=== PATIENT | male | born 1950 | race Caucasian/White ===

== ENCOUNTER 2019-02-19 21:51 | Inpatient (IN) | payer MEDICARE, MEDICAID ==
[~2019-02-19] VITALS: Ht 152.4 cm; Wt 70.0 kg
[2019-02-19] MEDS ORDERED: ALLOPURINOL100 MG PO (23:09)
[2019-02-19] MEDS ORDERED: ASPIR LOW81 MG PO (23:10)
[2019-02-19] MEDS ORDERED: LIPITOR20 MG PO (23:11)
[2019-02-19] MEDS ORDERED: EXELON1 EACH T (23:11)
[2019-02-19] MEDS ORDERED: ISOSORBIDE30 MG PO (23:12)
[2019-02-19] MEDS ORDERED: LEVOTHYROXINE75 MCG PO (23:13)
[2019-02-19] MEDS ORDERED: CENTRUM SILVER1 EACH PO (23:14)
[2019-02-19] MEDS ORDERED: NAMENDA-5 PO (23:15)
[2019-02-19] MEDS ORDERED: SEROQUEL400 M1 PO (23:16)
[2019-02-19] MEDS ORDERED: COREG12.5 M1 PO (23:18)
[2019-02-19] MEDS ORDERED: FERROUS SULFAT325 MG PO (23:21)
[2019-02-19] MEDS ORDERED: CLONAZEPAM1 MG PO (23:27)
[2019-02-19] MEDS ORDERED: ROPINIROLE HYDRO2 M2 PO (23:28)
[2019-02-19] MEDS ORDERED: SINEMET 25-2501 EACH PO (23:29)
[2019-02-19] MEDS ORDERED: ALBUTEROL2.5 MG/0.5 INH (23:31)
[2019-02-19] MEDS ORDERED: VENTOLIN 02.5 MG/3 M INH (23:32)
[2019-02-20 04:00] VITALS: BP 158/80
[2019-02-20 07:43] VITALS: BP 117/68
[2019-02-20 07:43] LABS: ALBUMIN 4.2 gm/dl (3.1-4.5); BUN 22 mg/dl (7-24); CHLORIDE 99 mmol/L (98-107); CHOLESTEROL 141 mg/dL (<200); CREATININE 1.07 mg/dL (0.70-1.30); HDL CHOLESTEROL 39 mg/dl (40-60); SGOT/AST 11 IU/L (3-35); SGPT/ALT 15 U/L (12-78); SODIUM 135 mmol/L (136-145); TOTAL PROTEIN 7.6 gm/dL (6.4-8.2)
[2019-02-20 07:44] LABS: ALKALINE PHOSPHATASE 106 U/L (45-117); LDL CHOLESTEROL 61 mg/dL (9-159); TRIGLYCERIDES 207 mg/dl (<150); VLDL CHOLESTEROL 41 mg/dL (6-40)
[2019-02-20 08:18] LABS: BASO # 0.1 10*3/uL (0.0-0.1); BASO % 0.5 % (0.0-1.0); EOS # 0.3 10*3/uL (0.0-0.4); EOS % 2.5 % (1.0-4.0); HEMATOCRIT 43.7 % (42.0-52.0); HEMOGLOBIN 14.7 g/dl (14.0-18.0); LYMPH % 15.6 % (27.0-41.0); MEAN CELL VOLUME 90.7 fl (80.0-94.0); MEAN CORPUSCULAR HGB 30.5 pg (27.0-31.0); MEAN CORPUSCULAR HGB CONC 33.6 g/dl (33.0-37.0); MEAN PLATELET VOLUME 11.8 fl (9.6-12.3); MONO # 1.4 10*3/uL (0.1-1.0); MONO % 10.9 % (3.0-9.0); NEUT # 8.8 10*3/uL (2.3-7.9); NEUT % 69.6 % (47.0-73.0); PLATELET COUNT AUTOMATED 254 10*3/uL (130-400); RED BLOOD COUNT 4.82 10*6/uL (4.50-5.90); RED CELL DISTRI WIDTH 12.6 % (0-14.5); WHITE BLOOD COUNT 12.6 10*3/uL (4.8-10.8)
[2019-02-20 08:46] LABS: VITAMIN D, 25-HYDROXY 22.8 ng/mL (30-100)
[2019-02-20 09:47] VITALS: BP 130/70
[2019-02-20 20:00] VITALS: BP 126/86
[2019-02-21 07:54] VITALS: BP 124/82
[2019-02-21 19:14] VITALS: BP 126/80
[2019-02-22 07:57] VITALS: BP 117/78
[2019-02-22 20:00] VITALS: BP 133/76
[2019-02-23 08:18] VITALS: BP 122/76
[2019-02-23 20:00] VITALS: BP 111/78
[2019-02-24 07:41] VITALS: BP 142/70
[2019-02-24 20:00] VITALS: BP 101/83
[2019-02-25 08:00] VITALS: BP 128/65
[2019-02-25 20:00] VITALS: BP 142/58
[2019-02-26 07:48] VITALS: BP 133/81; BP 145/58
[2019-02-26 20:00] VITALS: BP 125/60
[2019-02-27 08:00] VITALS: BP 136/66
[2019-02-27 20:00] VITALS: BP 140/74
[2019-02-28 07:45] VITALS: BP 132/71
[2019-02-28 19:57] VITALS: BP 125/80
[2019-03-01 08:00] VITALS: BP 119/59
[2019-03-01 20:00] VITALS: BP 126/62
[2019-03-02 08:00] VITALS: BP 106/61
[2019-03-02 19:29] VITALS: BP 123/74
[2019-03-03 08:00] VITALS: BP 111/88
[2019-03-03 19:42] VITALS: BP 101/83
[2019-03-04 08:00] VITALS: BP 130/74
[2019-03-04] MEDS ORDERED: TRIHEXYPHENIDYL2 M3 PO (08:30)
[2019-03-04] MEDS ORDERED: FANAPT8 MG PO (08:30)
[2019-03-04] MEDS ORDERED: CITALOPRAM20 MG PO (08:30)
[2019-03-04] MEDS ORDERED: VITAMIN D5000 UNIT PO (08:30)
[2019-03-04] MEDS ORDERED: HOMEMED PO (08:30)
[2019-03-04] MEDS ORDERED: EXELON13.3 MG/21 T (08:30)
[2019-03-04] MEDS ORDERED: DIVALPROEX SOD500 M1 PO (08:30)
[2019-03-04] MEDS ORDERED: THERA TABLET400 MCG PO (08:30)
[2019-03-04] MEDS ORDERED: MEMANTINE HCL10 MG PO (08:30)
[2019-03-04] MEDS ORDERED: ROZEREM8 MG PO (08:30)
== END 2019-03-04 10:00 | disposition other institution (70) | DRG 885 ==
LOC: 3N 21:51
PROVIDERS: Registered Nurse; ADMIT Psychiatry & Neurology Psychiatry
DX: F23 Brief psychotic disorder (principal); F02.81 Dementia in other diseases classified elsewhere, unspecified severity, with behavioral disturbance; G20 Parkinson's disease; F63.9 Impulse disorder, unspecified; I10 Essential (primary) hypertension; E11.65 Type 2 diabetes mellitus with hyperglycemia; F41.9 Anxiety disorder, unspecified; E03.9 Hypothyroidism, unspecified; Z79.82 Long term (current) use of aspirin; Z79.899 Other long term (current) drug therapy

== ENCOUNTER 2019-03-30 15:10 | Inpatient (IN) | payer MEDICARE ==
[~2019-03-30] VITALS: Ht 152.4 cm; Wt 57.8 kg
[~2019-03-30 15:10] MED LIST: ALBUTEROL2.5 MG/0.5 INH; ALLOPURINOL100 MG PO; ASPIR LOW81 MG PO; CENTRUM SILVER1 EACH PO; CITALOPRAM20 MG PO; CLONAZEPAM1 MG PO; COREG12.5 M1 PO; DIVALPROEX SOD500 M1 PO; EXELON1 EACH T; EXELON13.3 MG/21 T; FANAPT8 MG PO; FERROUS SULFAT325 MG PO; HOMEMED PO; ISOSORBIDE30 MG PO; LEVOTHYROXINE75 MCG PO; LIPITOR20 MG PO; MEMANTINE HCL10 MG PO; NAMENDA-5 PO; ROPINIROLE HYDRO2 M2 PO; ROZEREM8 MG PO; SEROQUEL400 M1 PO; SINEMET 25-2501 EACH PO; THERA TABLET400 MCG PO; TRIHEXYPHENIDYL2 M3 PO; VENTOLIN 02.5 MG/3 M INH; VITAMIN D5000 UNIT PO
[2019-03-30] MEDS ORDERED: ARTANE5 M1 PO (15:37)
[2019-03-30] MEDS ORDERED: ATIVAN1 MG PO (15:38)
[2019-03-30] MEDS ORDERED: VISTARIL50 MG PO (15:39)
[2019-03-30] MEDS ORDERED: GENTAMICIN3.5 GM OPH (15:41)
[2019-03-30] MEDS ORDERED: HALDOL5 MG/1 ML IJ (15:42)
[2019-03-30] MEDS ORDERED: HUMALOG100 UNIT/1 SQ (15:45)
[2019-03-30] MEDS ORDERED: SEROQUEL100 MG PO (15:46)
[2019-03-30] MEDS ORDERED: LANTUS SOL100 UNIT/1 SC (15:46)
[2019-03-30] MEDS ORDERED: SEROQUEL300 MG PO (15:47)
[2019-03-30] MEDS ORDERED: OMNICEF300 MG PO (16:31)
[2019-03-30 23:45] VITALS: BP 136/75
[2019-03-31 06:42] LABS: BASO % 0.4 % (0.0-1.0); EOS # 0.4 10*3/uL (0.0-0.4); EOS % 3.9 % (1.0-4.0); HEMATOCRIT 44.3 % (42.0-52.0); HEMOGLOBIN 14.8 g/dl (14.0-18.0); LYMPH # 1.7 10*3/uL (1.3-4.4); LYMPH % 18.7 % (27.0-41.0); MEAN CELL VOLUME 90.6 fl (80.0-94.0); MEAN CORPUSCULAR HGB 30.3 pg (27.0-31.0); MEAN CORPUSCULAR HGB CONC 33.4 g/dl (33.0-37.0); MEAN PLATELET VOLUME 10.9 fl (9.6-12.3); MONO # 0.6 10*3/uL (0.1-1.0); MONO % 6.9 % (3.0-9.0); NEUT # 6.5 10*3/uL (2.3-7.9); NEUT % 69.8 % (47.0-73.0); PLATELET COUNT AUTOMATED 283 10*3/uL (130-400); RED BLOOD COUNT 4.89 10*6/uL (4.50-5.90); RED CELL DISTRI WIDTH 12.3 % (0-14.5); WHITE BLOOD COUNT 9.3 10*3/uL (4.8-10.8)
[2019-03-31 07:21] LABS: ALBUMIN 3.9 gm/dl (3.1-4.5); BUN 28 mg/dl (7-24); CHLORIDE 106 mmol/L (98-107); CHOLESTEROL 99 mg/dL (<200); POTASSIUM 4.3 mmol/L (3.5-5.1); SGPT/ALT 14 U/L (12-78); SODIUM 139 mmol/L (136-145)
[2019-03-31 07:32] LABS: ALKALINE PHOSPHATASE 138 U/L (45-117); CREATININE 1.13 mg/dL (0.70-1.30); HDL CHOLESTEROL 40 mg/dl (40-60); LDL CHOLESTEROL 41 mg/dL (9-159); SGOT/AST 16 IU/L (3-35); THYROID STIM HORMONE (HS) 0.928 uIU/ml (0.358-4.75); TRIGLYCERIDES 90 mg/dl (<150); VLDL CHOLESTEROL 18 mg/dL (6-40)
[2019-03-31 07:51] LABS: VITAMIN D, 25-HYDROXY 53.4 ng/mL (30-100)
[2019-03-31 08:23] VITALS: BP 110/78
[2019-03-31 20:00] VITALS: BP 136/62
[2019-04-01 07:46] VITALS: BP 142/89
[2019-04-01 20:15] VITALS: BP 142/72
[2019-04-02 07:48] LABS: BILIRUBIN NEGATIVE (NEGATIVE); BLOOD NEGATIVE (NEGATIVE); CLARITY SL CLOUDY (CLEAR); COLOR YELLOW (YELLOW); GLUCOSE NEGATIVE (NEGATIVE); KETONE NEGATIVE (NEGATIVE); LEUKO ESTERASE 2+ (NEGATIVE); NITRITE NEGATIVE (NEGATIVE); PH 6.5 (5.0-9.0); UROBILINOGEN 0.2 E.U./dl (0.2-1.0)
[2019-04-02 07:49] LABS: WBC TNTC wbc/hpf (0-5); YEAST 2+
[2019-04-02 07:52] VITALS: BP 125/68
[2019-04-02 20:00] VITALS: BP 113/80
[2019-04-03 07:35] VITALS: BP 140/62
[2019-04-03 19:42] VITALS: BP 136/69
[2019-04-04 07:46] VITALS: BP 124/60
[2019-04-04 19:54] VITALS: BP 150/62
[2019-04-05 08:00] VITALS: BP 144/64
[2019-04-05 19:39] VITALS: BP 144/60
[2019-04-06 07:58] VITALS: BP 133/60
[2019-04-06 20:00] VITALS: BP 132/82
[2019-04-07 06:22] LABS: BASO % 0.4 % (0.0-1.0); EOS # 0.3 10*3/uL (0.0-0.4); EOS % 2.7 % (1.0-4.0); HEMATOCRIT 42.1 % (42.0-52.0); HEMOGLOBIN 13.9 g/dl (14.0-18.0); LYMPH # 1.9 10*3/uL (1.3-4.4); LYMPH % 18.1 % (27.0-41.0); MEAN CELL VOLUME 89.2 fl (80.0-94.0); MEAN CORPUSCULAR HGB 29.4 pg (27.0-31.0); MEAN PLATELET VOLUME 10.9 fl (9.6-12.3); MONO # 0.7 10*3/uL (0.1-1.0); MONO % 6.7 % (3.0-9.0); NEUT # 7.5 10*3/uL (2.3-7.9); NEUT % 71.8 % (47.0-73.0); PLATELET COUNT AUTOMATED 266 10*3/uL (130-400); RED BLOOD COUNT 4.72 10*6/uL (4.50-5.90); RED CELL DISTRI WIDTH 12.1 % (0-14.5); WHITE BLOOD COUNT 10.5 10*3/uL (4.8-10.8)
[2019-04-07 08:00] VITALS: BP 123/77
[2019-04-07 19:47] VITALS: BP 127/86
[2019-04-08 07:51] VITALS: BP 120/84
[2019-04-08 20:00] VITALS: BP 142/59
[2019-04-09 07:32] VITALS: BP 138/72
[2019-04-09 20:00] VITALS: BP 138/64
[2019-04-10 08:00] VITALS: BP 112/77
[2019-04-10 20:00] VITALS: BP 146/66
[2019-04-11 07:46] VITALS: BP 94/67
[2019-04-11 09:30] VITALS: BP 122/66
[2019-04-11 20:02] VITALS: BP 110/73
[2019-04-12 07:53] VITALS: BP 120/52
[2019-04-12] MEDS ORDERED: TRIHEXYPHENIDYL2 M3 PO (08:52)
[2019-04-12] MEDS ORDERED: CLOZAPINE100 MG PO (08:52)
[2019-04-12] MEDS ORDERED: CLOZAPINE25 MG PO (08:52)
[2019-04-12] MEDS ORDERED: CITALOPRAM20 MG PO (08:52)
[2019-04-12] MEDS ORDERED: EYE DROPS 15 ML15 ML OPH (12:28)
== END 2019-04-12 14:45 | disposition other institution (70) | DRG 885 ==
LOC: 3N 15:10
PROVIDERS: ADMIT Psychiatry & Neurology Psychiatry
DX: F25.0 Schizoaffective disorder, bipolar type (principal); F03.91 Unspecified dementia, unspecified severity, with behavioral disturbance; F33.9 Major depressive disorder, recurrent, unspecified; E11.9 Type 2 diabetes mellitus without complications; R62.50 Unspecified lack of expected normal physiological development in childhood; G24.01 Drug induced subacute dyskinesia; I10 Essential (primary) hypertension; E78.5 Hyperlipidemia, unspecified; G20 Parkinson's disease; F41.9 Anxiety disorder, unspecified; E03.9 Hypothyroidism, unspecified; M10.9 Gout, unspecified; G47.00 Insomnia, unspecified; Z83.3 Family history of diabetes mellitus; Z79.4 Long term (current) use of insulin; Z87.891 Personal history of nicotine dependence; Z82.49 Family history of ischemic heart disease and other diseases of the circulatory system; Z80.9 Family history of malignant neoplasm, unspecified; Z84.1 Family history of disorders of kidney and ureter; Z79.82 Long term (current) use of aspirin; Z79.899 Other long term (current) drug therapy

== ENCOUNTER 2019-08-05 23:01 | Inpatient (IN) | payer MEDICARE, MEDICAID ==
[~2019-08-05] VITALS: Ht 157.4 cm; Wt 63.5 kg
[~2019-08-05 23:01] MED LIST changes: +ARTANE5 M1 PO; +ATIVAN1 MG PO; +CLOZAPINE100 MG PO; +CLOZAPINE25 MG PO; +EYE DROPS 15 ML15 ML OPH; +GENTAMICIN3.5 GM OPH; +HALDOL5 MG/1 ML IJ; +HUMALOG100 UNIT/1 SQ; +LANTUS SOL100 UNIT/1 SC; +OMNICEF300 MG PO; +SEROQUEL100 MG PO; +SEROQUEL300 MG PO; +VISTARIL50 MG PO
[2019-08-06] MEDS ORDERED: CLOZAPINE50 MG PO (05:08)
[2019-08-06] MEDS ORDERED: TETRABENAZINE12.5 MG PO (05:09)
[2019-08-06] MEDS ORDERED: GENTACIDIN5 ML OU (05:14)
[2019-08-06] MEDS ORDERED: NUPLAZID34 MG PO (05:15)
[2019-08-06] MEDS ORDERED: MIRTAZAPINE15 M2 PO (05:17)
[2019-08-06] MEDS ORDERED: METFORMIN HYDR500 MG PO (05:20)
[2019-08-06] MEDS ORDERED: TRAZODONE50 MG PO (05:23)
[2019-08-06] MEDS ORDERED: PHARMASSURE FO0.4 MG PO (05:25)
[2019-08-06] MEDS ORDERED: VISTARIL50 MG PO ×2 (05:27→05:29)
[2019-08-06] MEDS ORDERED: MELATONIN3 MG PO (05:29)
[2019-08-06] MEDS ORDERED: CELEXA20 MG PO (05:38)
[2019-08-06] MEDS ORDERED: CLOZAPINE200 MG PO (05:49)
--- NOTE | 2019-08-06 18:17 | NUR ---
LARS MCKENNA a 69 year old M admitted via wheel chair from the [facility] ER as a Voluntary admission by Guardian Chelsea Chen admission. Arrived on unit at 1816 . ALLERGIES: NKA. Vital signs are: 97.3-89-17 156/75. The Verbal consent by Guardian Chelsea Chen the following forms with stated understanding: Authorization For The Release of Medical Information, Clothing List, Consent to Voluntary Admission and Hospitalization, Consent and Release Forms/Receipt of Rights, Acknowledgement of Advance Directive Information, Behavioral Health Consent Form, and Informed Consent of Medications. Admitted under the services of Dr. [facility]. A search was conducted and hazardous articles were removed. Client was oriented to the unit. JS ROMERO Patient arrived on the unit accompanied by nurse, MHW, and security via wheelchair. Pt was mute and not responding to questions, with a labile mood . Noted eye darting at times, involuntary generalized body movements. Pt did not come with any belongings, only clothes that he had. Pt denied food, drank two cups of water. Refusing skin assessment and to answer any admission questions at this time.
[2019-08-06 18:35] VITALS: BP 156/75
--- NOTE | 2019-08-06 18:53 | NUR ---
JOSUE DODGE, AWARE OF PT'S ADMISSION.
[2019-08-06 20:00] VITALS: BP 156/75
--- NOTE | 2019-08-06 20:39 | NUR ---
DR MARTIN ON UNIT TO SEE PATIENT. PATIENT LET THIS NURSE ASSESS SKIN. SCRATCH TO RIGHT ABDOMEN. WILL INFORM THAT PATIENT WILL NEED SEEN BY PODIATRY FOR TOENAIL CARE
--- NOTE | 2019-08-07 06:36 | NUR ---
PATIENT SLEPT APPROX 2 HOURS THROUGHOUT THE NIGHT INTERRUPTED. NO DISTRESS NOTED.
[2019-08-07 08:00] VITALS: BP 150/72
--- NOTE | 2019-08-07 10:30 | NUR ---
and on unit to see pt at this time, update given.
[2019-08-07 11:24] LABS: BASO % 0.3 % (0.0-1.0); EOS # 0.1 10*3/uL (0.0-0.4); LYMPH # 1.7 10*3/uL (1.3-4.4); MEAN CELL VOLUME 86.9 fl (80.0-94.0); MEAN CORPUSCULAR HGB CONC 33.4 g/dl (33.0-37.0); MEAN PLATELET VOLUME 10.6 fl (9.6-12.3); MONO # 0.8 10*3/uL (0.1-1.0); MONO % 6.8 % (3.0-9.0); NEUT # 8.8 10*3/uL (2.3-7.9); NEUT % 76.6 % (47.0-73.0); PLATELET COUNT AUTOMATED 350 10*3/uL (130-400); RED BLOOD COUNT 4.72 10*6/uL (4.50-5.90); RED CELL DISTRI WIDTH 13.1 % (0-14.5); WHITE BLOOD COUNT 11.5 10*3/uL (4.8-10.8)
[2019-08-07 11:51] LABS: ALBUMIN 4.2 gm/dl (3.1-4.5); ALKALINE PHOSPHATASE 157 U/L (45-117); BUN 50 mg/dl (7-24); CHLORIDE 105 mmol/L (98-107); CHOLESTEROL 105 mg/dL (<200); HDL CHOLESTEROL 42 mg/dl (40-60); LDL CHOLESTEROL 33 mg/dL (9-159); POTASSIUM 4.2 mmol/L (3.5-5.1); SGOT/AST 34 IU/L (3-35); SGPT/ALT 43 U/L (12-78); SODIUM 137 mmol/L (136-145); TOTAL PROTEIN 7.4 gm/dL (6.4-8.2); TRIGLYCERIDES 149 mg/dl (<150); VLDL CHOLESTEROL 30 mg/dL (6-40)
--- NOTE | 2019-08-07 13:09 | NUR ---
PSYCHOSOCIAL HX COMPLETED THIS DATE
--- NOTE | 2019-08-07 13:54 | NUR ---
DR MONSIVAIS CONTACTED AT [phone]. ASKED DR MONSIVAIS TO LOOK AT PTS' LABS. STATED OK.
[2019-08-07 13:55] LABS: VITAMIN D, 25-HYDROXY 44.5 ng/mL (30-100)
--- NOTE | 2019-08-07 17:44 | NUR ---
Problem: AGITATION, PT YELLING OUT ND HITTING TABLE Interventions: A&O TO PERSON, AGITATED, IRRITABLE, LABILE, and behavior assessed VIA Q15 MINUTE SAFETY CHECKS. Continue medication regimen, encourage socializing with peers and staff, encouraged attending and participating in groups. 1:1 PROVIDED FOR THERAPEUTIC COMMUNICATION Response: PT REMAINS A&O TO PERSON ONLY. MEDICATION COMPLIANT WITH PROMPTING. Plan: Continue medication regimen, maintain patient safety on the unit, and continue to provide reorientation as needed. Continue to assess patient for orientation, CONTINUE TO MONITOR BEHAVIOR WITH Q15 MINUTE SAFETY CHECKS. Encourage patient to attend and participate in groups and encourage patient to socialize with peers and staff.
[2019-08-07 19:56] VITALS: BP 128/58
--- NOTE | 2019-08-08 01:21 | NUR ---
PT ALERT. ORIENTED TO PERSON ONLY. ABLE TO FOLLOW VERAL COMMAND. MEDICATION COMPLIANT WITHOUT DIFFICULTY. PT CONSUMED HS SNACK WELL 240CC OF GLUCERNA. BSG 76, PT PROVIDED WITH ADDITIONAL PUREED SNACK. PT HAD ONE EPISODE OF YELLING OUT AND SMACKING A TABLE, EASILY REDIRECTED. PT ASSISTED TO BED X 2 ASSIST, SLIGHTLY RESISTIVE WITH HOC, PROVIDED WITH REASSURANCE OF SAFETY, EFFECTIVE. PT NOW RESTING QUIETLY IN BED. WILL CONTINUE TO MONITOR Q15 MIN PER POLICY FOR SAFETY. BED LOW AND LOCKED. ALARM INTACT AND AUDIBLE.
--- NOTE | 2019-08-08 05:44 | NUR ---
PT SLEPT 7 BROKEN HOURS T/O NIGHT. NOTED TO BE RESTLESS, FREQUENTLY MOVING.
[2019-08-08 08:00] VITALS: BP 144/71
--- NOTE | 2019-08-08 08:05 | NUR ---
Patient eating breakfast in dining room with peers. Respirations easy and regular. Vital signs stable. No overt distress. ANDREA DICKINSON
--- NOTE | 2019-08-08 08:30 | NUR ---
Treatment Plan meeting was held this a.m. with Dr. Johnston, KATHARINE Malik, RN, AT, DAM ATTENDANT-S and Link Trainer Maintenance Man. Plan for discharge Next Week. Pt. came to [facility] from [place]. Will reach out to facility today to discuss discharge Planning.
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
--- NOTE | 2019-08-08 10:15 | NUR ---
ATTEMPTED TO ST CATH PT PER DR CLARK. PT ST CATH'ED WITHOUT DIFFICULTY AND STERILE TECHNIQUE MAINTAINED. PT TOLERATED WELL. NO URINE OUTPUT AT THIS TIME. PT WAS INCONTINENT OF URINE.
--- NOTE | 2019-08-08 11:39 | NUR ---
ASSESSMENT PT IS UNABLE TO PARTICIPATE IN ASSESSMENT AT THIS TIME DUE TO COGNITIVE IMPAIRMENT. ASSESSMENT WAS BASED ON DOCUMENTATION, NURSING REPORT AND OBSERVATION WELL PREVIOUS EXPERIENCE WITH PT.
--- NOTE | 2019-08-08 12:18 | NUR ---
Spoke with Lynette Flores at [facility]. Pt. is to return to facility as new Admit. He was out of Medicaid Bed Hold Days and will readmit New Admit SNF. PT/OT required. Notified Nurse Zuleta in the [facility].
--- NOTE | 2019-08-08 13:25 | NUR ---
Clinical Updates faxed to [place].
--- NOTE | 2019-08-08 15:43 | NUR ---
GROUPS A AND B COMBINED PT WAS PRESENT FOR AFTERNOON GROUP THERAPY RECLINED IN A ALLISON CHAIR. PT IS UNABLE TO PARTICIPATE AT THIS TIME DUE TO COGNITIVE IMPAIRMENT. PT WAS OBSERVANT AND QUIET. PT EXHIBITED NO ADVERSE BEHAVIORS WHILE IN GROUP.
--- NOTE | 2019-08-08 16:09 | NUR ---
PT IN DINNINGROOM YELLING OUT, POISON, AND HITTING TRAY. UNABLE TO REDIRECT PT. WHEN ASKED PT WHAT WAS POISON HE YELLED YES IT IS. PRN ATIVAN PO GIVEN AT THIS TIME. WILL MONITOR EFFECTIVENESS OF MEDICATION.
--- NOTE | 2019-08-08 17:10 | NUR ---
PRN ATIVAN EFFECTIVE.
--- NOTE | 2019-08-08 17:43 | NUR ---
DAYLIGHT SKIN ASSESSMENT 08/08/19 Completed by this RN and 2nd RN NADINE: Pt agitated, refused to allow nursing to complete full head to toe skin assessment.
--- NOTE | 2019-08-08 18:41 | NUR ---
P: LABILE MOOD, PT YELLING OUT INTERMITTENTLY AND HITTING TRAY. I: PROVIDED 1:1 FOR THERAPEUTIC COMMUNICATION. REORIENT/REDIRECTED PT NEEDED. ENCOURAGED MEDICATION COMPLIANCE. ENCOURAGED PT TO INTERACT WITH STAFF AND PEERS. R: PT NOT RECEPTIVE TO REDIRECTION AND REORIENTATION. MEDICATION COMPLIANT WITH PROMPTING. PT WILL NOT INTERACT WITH STAFF OR PEERS. ALERT TO SELF. SEE [facility] FLOWSHEET FOR SPECIFIC MONITORING.
[2019-08-08 20:00] VITALS: BP 150/75
--- NOTE | 2019-08-09 01:23 | NUR ---
P-CONFUSION I-REDIRECTION WITH 1:1 THERAPEUTIC INTERVENTIONS AND COMMUNICATION. PRESENT REALITY. EDUCATE AND ENCOURAGE MEDICATION COMPLIANCE R-MEDICATION COMPLIANT AT HS. PATIENT PROVIDED NOURISHMENT AND FLUIDS AT HS. PATIENT WITH NO HALLUCINATIONS OR DELUSIONS. PATIENT WITH NO HOMICIDAL IDEATIONS AND DENIES SUICIDAL IDEATIONS AT THIS TIME. PATIENT WITH ABNORMAL INVOLUNTARY BODY MOVEMENTS. ATTEMPT X 1 TO STRAIGHT CATH PATIENT TO OBTAIN URINE SPECIMEN. STERILE TECHNIQUE USED. URINE CLOUDY YELLOW. PATIENT NOT TOLERATING PROCEDURE WELL. PATIENT WITH SMALL AMOUNT OF BLOOD WHEN CATHETER REMOVED. URINE SENT TO LAB BUT UNABLE TO RUN URINE SPEIMEN DUE TO MISSING INFORMATION ON LABEL. P-CONTINUE TO ENCOURAGE MEDICATION COMPLIANCE, CONTINUE TO PRESENT REALITY, ENCOURAGE GROUP THERAPY WHILE AWAKE
--- NOTE | 2019-08-09 05:23 | NUR ---
PATIENT SLEPT 2 HOURS OF INTERRUPTED SLEEP THROUGHTOUT SHIFT. Q 15 MINUTE CHECKS MAINTAINED. 24 HR chart check completed.
[2019-08-09 07:52] VITALS: BP 120/84
--- NOTE | 2019-08-09 08:02 | NUR ---
Patient sitting in dining room with peers, listening to music. No voiced complaints at this time. Encouraging patient to shift weight frequently in cahir. No s/s of distress noted; Resps even and unlabored on room air. Falling star program maintained with alarms intact. Q15 minute checks maintained for safety.
--- NOTE | 2019-08-09 08:30 | NUR ---
Treatment Plan meeting was held this a.m. with Dr. Johnston on the Telephone, LISW Helena, RN, AT, ROUTE INSPECTOR-S and Contact Center Analyst in attendance. Plan for discharge Next week with return to [place].
--- NOTE | 2019-08-09 09:45 | NUR ---
DR WANG ON THE UNIT TO ASSESS PT.
--- NOTE | 2019-08-09 10:55 | NUR ---
DAYLIGHT SKIN ASSESSMENT 08/09/19 Completed by this RN and 2nd RN DAVID.[email or web address]: Pt agitated, refused to allow nursing to complete full head to toe skin assessment.
--- NOTE | 2019-08-09 11:44 | NUR ---
AM GROUP PT ATTENDED MORNING GROUP THERAPY BUT IS UNABLE TO PARTICIPATE DUE TO COGNITIVE IMPAIRMENT. PT OBSERVED AND LISTENED TO MUSIC. PT HAD ONE OUTBURST WHERE HE POUNDED ON HIS TRY AND YELLED OUT, BUT OTHERWISE EXHIBITED NO ADVERSE BEHAVIORS WHILE IN GROUP
--- NOTE | 2019-08-09 12:21 | NUR ---
PHYSICAL THERAPY Physical Therapy evaluation completed on 3N with full evaluation to follow. Moderate complexity PT evaluation per chart review and evaluation, [address]. Recommend physical therapy per plan of care and SNF upon discharge. Thank you for this referral. Yulissa Kevin,PT,DPT
--- NOTE | 2019-08-09 12:29 | NUR ---
Occupational Therapy evaluation completed on 3N with full evaluation to follow. Recommend occupational therapy per plan of care and SNF upon discharge. Thank you for this referral. Kell Lloyd OTR/L
--- NOTE | 2019-08-09 14:05 | NUR ---
GROUP A PT WAS PRESENT FOR GROUP THERAPY RECLINED IN A ALLISON CHAIR WATCHING THE MOVIE. PT IS UNABLE TO PARTICIPATE DUE TO COGNITIVE IMPAIRMENT BUT IS VERY OBSERVANT. PT HAD NO OUTBURSTS OR ADVERSE BEHAVIOR WHILE IN GROUP.
--- NOTE | 2019-08-09 15:39 | NUR ---
GROUP B PT WAS PRESENT FOR GROUP THERAPY AND WAS AGITATED WHEN GROUP BEGAN. PT WAS MOVED TO AN AREA OF THE ROOM WHERE HE COULD OBSERVE AND LISTEN TO MUSIC. PT IS SELECTIVELY MUTE. PT WOULD ABRUPTLY POUND ON TRAY AND YELL OUT, WHICH WAS CAUSING HIS PEERS TO STARTLE. PT WAS ASKED TO TRY TO STOP BUT DID IT AGAIN SEVERAL TIMES.
--- NOTE | 2019-08-09 15:40 | NUR ---
Shift chart check completed.
--- NOTE | 2019-08-09 16:24 | NUR ---
Coccyx cleansed with soap and water and hydroguard applied per orders.
--- NOTE | 2019-08-09 16:56 | NUR ---
P- Confusion, Yelling out, Labile mood, Refuse head to toe assessment. I- Assess mood, orientation, SI/HI, hallucinations, delusions, or pain. Provide medications on time with education on each. Encourage medication compliance. Reorient patient when confusion is noted. 1:1 interaction, reassurance, redirection, and low stimuli environment provided. Encourage to attend/participate in group therapies. One to two assist with toleting, ADLs, care, and transfering due to unsteady gait. Educate on the importance of head to toe assessment, reapproach at a later time. R- Patient remains at baseline confusion only alert to person only. Reorientation effective for a short while. Patient refused to participate in interview questions. No s/s of interacting with internal stimuli. No s/s of delusional or paranoid thought process. No s/s of distress noted; resps even and unlabored on room air. Pt mood labile. 1:1, reassurance, redirection, and low stimuli effective for yelling out. Pt yelling out, unsure what patient is saying when he yells out randomly. Sounded like pt yelled out "Down ruddy, Down" at one time. Pt continues to have generalized involuntary movements. Unsteady gait due to involuntary movements; one to two assist provided with toileting, transfering, ADLs, care. Incontinent of urine. Refused head to toe assessment, even with reapproach continue to refuse. Adequate PO intake noted. Medication compliant with encouragement. P- Assess mood, orientation, SI/HI, hallucinations, delusions, or pain every shift. Provide medications on time with education on each. Encourage compliance. 1:1, reassurance, redirection, and low stimuli environment provided with labile mood and yelling out. Head to toe assessment every shift and reapproach if refusing. Falling star program maintained. One to two assist provided with ADLs, care, toileting, and transfering due to unsteady gait. Q15 minute checks maintained for safety.
[2019-08-09 20:00] VITALS: BP 135/72
--- NOTE | 2019-08-09 21:19 | NUR ---
P-CONFUSION, YELLING OUT, NON-SENISCAL SPEECH. I-ASSESS ORIENTATION, MOOD, AND BEHAVIOR. PRESENT REALITY AND REORIENT. PROVIDE 1:1 WITH THERAPEUTIC INTERVENTIONS. ENCOURAGE MEDICATION COMPLIANCE AND EDUCATE. R-PATIENT ALERT TO SELF, OTHERWISE APPEARS CONFUSED. ASSESSMENT DIFFICULT TO COMPLETE DUE TO PATIENTS SPEECH BEING LOUD, SLURRED/GARBLED AND PATIENT REFUSING TO PARTICIPATE IN INTERVIEW QUESTIONS. PT REDIRECTABLE WITH MULTIPLE PROMPTS DURING PERIODS OF YELLING OUT/DISRUPTIVE BEHAVIOR. UNDERLYING IRRITABILITY NOTED WITH INTERACTIONS, NO COMBATIVE BEHAVIORS OBSERVED AT THIS TIME. PT MEDICATION COMPLIANT WITHOUT DIFFICULTY WHEN CRUSHED IN APPLESAUCE, UNABLE TO EDUCATE DUE TO COGNITION. PT VOICES NO SI/HI, HALLUCINATIONS, OR PAIN. NO NOTED RESPONDING TO INTERNAL STIMULI. PT CONTINUES TO HAVE GENERALIZED INVOLUNTARY MOVEMENTS, UNSTEADY GAIT, X2 ASSIST WITH ALL CARE. PT INCONTINENT OF BOWEL AND BLADDER. NO DISTRESS NOTED. P-CONTINUE TO MONITOR MOODS AND BEHAVIORS. MAINTAIN Q 15 MIN CHECKS AND PRN FOR SAFETY.
--- NOTE | 2019-08-10 01:07 | NUR ---
24 HR chart check completed.
--- NOTE | 2019-08-10 05:59 | NUR ---
SLEPT 3 HOURS INTERRUPTED
--- NOTE | 2019-08-10 07:30 | NUR ---
OT NOTE Prior to coming to the floor spoke with nurse Ram and reported that therapy was coming to treat this pt. Pt was seen this A.M. 1:1 for 15 minute OT session with OIL DRILLING ENGINEER and nursing staff present for observation only. Upon arrival pt was sitting semi reclined in the kasie chair in the dining allen. Pt identified by name and on wristband. Pt was taken out to the hallway where he donned B socks with Nathalie for assist with proper sequencing of task. Sit to stand completed from chair level with Nathalie followed by functional mobility to his room with Nathalie DEVELOPING MACHINE OPERATOR. Pt sat EOB while donning pants with Nathalie for inital start over his feet. Sit to stand completed from bed level with Nathalie followed by functional mobility back to the kasie chair with Nathalie DEVELOPING MACHINE OPERATOR. Pt was left sitting upright in the dining allen under [facility] staff supervision with lap tray in place and body alarm activated for safety. Continue with rec D/C plan to SNF. ARUN Doherty/Lulu
--- NOTE | 2019-08-10 07:40 | NUR ---
PHYSICAL THERAPY Patient seen this am for therapy visit and was sitting semi reclined in activity room Loren chair upon therapist arrival. Patient identified by name / on ankle band and presented with mostly no verbal communication, except for yes/no type responses. Patient transfers sit to stand CGA and ambulates RADIATION THERAPY TECHNOLOGIST/CGA, 50'x 2, demonstrating impulsive gait velocity at times, requiering multiple v/c's to focus on task. Patient also demonstrated several episodes of R side gait deviation prior to returning to activity room Loren chair. Patient remained in chair with lap tray and body alarm, under [facility] staff Supervision. Will continue per POC as tolerated, total treatment time 17 minutes. Jono Tate, LEGAL EXECUTIVE ASSISTANT
[2019-08-10 07:42] VITALS: BP 145/85
--- NOTE | 2019-08-10 08:30 | NUR ---
Treatment Plan meeting was held this a.m. with KATHARINE Malik, Dr. Johnston Via telephone, RN, AT, JOSUE-S and Gearcase Assembler. Plan for discharge Next Week. Pt. will return to [place].
--- NOTE | 2019-08-10 09:38 | NUR ---
Patient sitting in the dining room in [facility], breakfast in front of him. No s/s of distress noted, resps even and unlabored on room air. Skin integrity interventions maintained. Patient shifting weight frequently in chair, encouraged to do so. Falling star program maintained with alarms intact/audible. Q15 minute checks maintained for safety.
--- NOTE | 2019-08-10 11:35 | NUR ---
AM GROUP PT IS UNABLE TO ATTEND GROUP THERAPY AT THIS TIME DUE TO COGNITIVE IMPAIRMENT AND A DISRUPTION TO THE MILIEU. PT RANDOMLY YELLS OUT AND STRIKES HIS TRAY STARTLING HIS PEERS. PT WAS IN THE IRBY WITH MHW FOR OBSERVATION
--- NOTE | 2019-08-10 12:00 | NUR ---
Shift chart check completed.
--- NOTE | 2019-08-10 12:00 | NUR ---
Shift chart check completed.
--- NOTE | 2019-08-10 14:25 | NUR ---
Clinical updates faxed to [place].
--- NOTE | 2019-08-10 15:00 | NUR ---
Patient refused head to toe skin assessment.
--- NOTE | 2019-08-10 15:44 | NUR ---
P- Yelling out, Irritable, Isolative, Selective with medications, Confusion I- Assess mood, orientation, SI/HI, hallucinations, delusions, or pain. Provide medications on time with education on each. Encourage medication compliance. Reorient when confusion is noted. 1:1 therapeutic interaction, redirection, and reassurance provided with yelling out and irritability. Low stimuli environment and activities provided for patient. Encourage to attend and participate in group therapies. Falling star program maintained with alarms intact/audible. I- Patient alert to self and approximate place. Unreceptive to reorientation. Unable to assess other areas due to patient remaining mute. Patient refusing medications at times and selective with what medications he will take. Patient will say "no, no, no". Patient will not ellaborate on why he does not want to take medications at times. Education and 1:1 interaction is ineffective. Patient will randomly start yelling out and thrashing his arms and legs around. Unable to understand what the patient is yelling due to haveing a garbled speech. No s/s of interacting with internal stimuli. Unsure if paranoid or delusional thought process is noted due to yelling out and not being able to tell what he is yelling about and refusing medications. No s/s of distress noted, resps even and unlabored on room air. Pt not participating/attending group therapies, denies wanting to do activities. Low stimuli environment seems to be more helpful for patients. P- Assess mood, orientation, SI/HI, hallucinations, delusions, or pain every shift. Provide meds on time with education on time. Encourage compliance. Reorient with confusion. Provide 1:1 interaction, reassurance, redirection, low stimuli environment, and activities when needed. Encourage to attend/paricipate in group therapies. Falling star program maintained. Skin integrity interventions maintained. Q15 minute checks maintained for safety.
--- NOTE | 2019-08-10 15:47 | NUR ---
GROUP B PT ATTENDED GROUP THERAPY AND WAS LESS AGITATED AND DID NOT YELL OUT OR STRIKE HIS TRAY. PT WAS CONTENT TO QUIETLY OBSERVE.
--- NOTE | 2019-08-10 17:08 | NUR ---
Discrepancy in Pyxis: [id number]. This nurse was attempting to get out a Geodon, counting the wrong amount twice. This nurse thought there was 14 but there was really 13 creating this discrepancy. By pulling the Geodon for this patient, there should now be 12 in the pyxis.
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
--- NOTE | 2019-08-10 18:42 | NUR ---
PRN Ativan and Geodon that was given per orders were effective. Patient is reclined in gerichair with eyes closed in a low stimuli environment. No s/s of distress noted, resps even and unlabored on room air. Easily arousable to verbal and tactile stimuli. Falling star program maintained with alarms intact and audible. Q15 minute chcks maintained for safety.
[2019-08-10 20:02] VITALS: BP 142/86
--- NOTE | 2019-08-10 22:04 | NUR ---
EASILY AWAKENED FOR MEDICATIONS. NO COMPLAINTS OFFERED. ATE 2 1/2 CONTAINERS OF APPLESAUCE. NOT INTERESTED IN TALKING. CLOSED EYES AND APPEARED TO BE GOING BACK TO SLEEP
--- NOTE | 2019-08-11 02:04 | NUR ---
RESTING QUIET IN CHAIR. MOVES SELF AROUND 24 HR chart check completed.
--- NOTE | 2019-08-11 06:35 | NUR ---
WITH ASSIST OF 2 WE GET TO BATHROOM. INCONTINENT OF LARGE AMOUNT FOUL SMELLING URINE. CLEANED UP AND PLACED IN BED. IMMEDIATLY CLOSED EYES BUT DID ALLOW BSG TO BE DONE. REFUSED PO MEDICATION AT THIS TIME. SLEPT 9 INTERUPTED HOURS
--- NOTE | 2019-08-11 07:15 | NUR ---
PHYSICAL THERAPY Patient seen this am for therapy visit and was resting Prone in bed upon therapist arrival. Patient identified by name / as patient responds with mostly yes / no type answers. Patient needed MAX v/c's to improve focus on task in completing all treatment this session as patient transfers supine to sit EOB with MIN A. Patient completed sit to stand CGA and was a little impulsive this moring, ambulating AIRPORT TOWER CONTROLLER/CGA x 2 to bathroom, 20'x 1, then additional 100'x 1, AIRPORT TOWER CONTROLLER/CGA, demonstrating increased gait velocity and POOR safety awareness. Patient returned to Loren chair with lap tray and body alarm in activity room under [facility] staff Supervision. Will continue per POC as tolerated, total treatment time 17 minutes. Jono Tate, COACH
--- NOTE | 2019-08-11 07:30 | NUR ---
OT NOTE Prior to coming to the floor spoke with Afua and reported that therapy was coming to the floor to treat this pt. Pt was seen this A.M. 1:1 for 15 minute OT session with INSPECTOR SET UP AND LAY OUT and nursing staff present for observation only. Upon arrival pt was supine in bed. Pt identified by name and and had no complaints at this time. Pt transferred supine to sit EOB with Nathalie for assist with BLE's. While seated pt donned B socks with maxA due to being unable to proccess commands and poor attention to tasks. Sit to stand completed from bed level with CGA and WAN SUPPORT SPECIALIST X 2 followed by functional mobility to the bathroom with CGA, WAN SUPPORT SPECIALIST X 2. Pt transferred on/off standard commode with CGA and required constant verbal and tactile prompts for slowing down due to being very impulsive and increasing risk of falls. Functional mobility completed to the dining allen with CGA, WAN SUPPORT SPECIALIST X 2 where he was left sitting reclined with lap tray in place, body alarm activated for safety, and under [facility] staff supervision. Continue with rec D/C plan to SNF. ARUN Doherty/Lulu
[2019-08-11 07:31] VITALS: BP 145/79
--- NOTE | 2019-08-11 08:30 | NUR ---
Treatment Plan meeting was held this a.m. with Dr. Johnston via telephone, RN, AT, JOSUE-S and Pin Attacher in attendance. Plan for discharge Next week with return to [place].
--- NOTE | 2019-08-11 11:00 | NUR ---
P: INCREASED RESTLESSNESS, CONSTANT MOTION, THRASHING SELF IN ALLISON CHAIR. I: ONE ON ONE, REDIRECTION, WARM BLANKET PROVIDED, SOFT MUSIC. MATTRESS PLACED ON FLOOR IN QUIET ROOM AND PATIENT ASSISTED ON MATTRESS WITH BLANKET AND PILLOWS AND LITTLE RESISTANCE NOTED. LOW STIMULI AREA. R: EFFECTIVE. PATIENT RESTING ON MATTRESS WITH EYES CLOSED. NO LONGER IN CONSTANT MOTION, APPEARS CONTENT. PATIENT IS ALERT TO SELF WITH CONFUSION. ABLE TO FOLLOW SIMPLE COMMANDS. MOOD IS LABILE WITH RESTLESSSNESS. HOPELESS/HELPLESS. NO RESPONSE TO INTERNAL STIMULI. NO VOICED STATEMENTS OF HI/SI OR PAIN. MEDICATION COMPLAINT. Q 15 MINUTE SAFETY CHECKS. 2 PERSON ASSIST WITH ACTIVITIES OF DAILY LIVING, INCONTINENT OF BOWEL AND BLADDER. SET UP FOR MEALS, INTAKES ARE POOR AND VARIES. ONE PERSON ASSIST [facility] MEALS TO ENCOURAGE INTAKES AND FLUIDS. DID NOT PARTICIPATE IN GROUP SESSIONS. NO AGGRESSION OBSERVED. P: CONTINUE TO MONITOR FOR AGGRESSION, THREATENING OF OTHERS. PROVIDE ONE ON ONE, REDIRECTION, LOW STIMULI AREA, MUSIC THERAPY NEEDED.
--- NOTE | 2019-08-11 11:26 | NUR ---
Patient thrashing about due to involuntary body movements this AM. Therapeutic touch and warm blanket provided by Paty Sterling, finished goods planner. These interventions were not successful in calming pt for any period of time. RNs moved pt to mats on floor. Observed pt calming and involuntary movements subsiding.
--- NOTE | 2019-08-11 11:38 | NUR ---
AM GROUP PT IS UNABLE TO ATTEND GROUP THERAPY DUE TO COGNITIVE IMPAIRMENT.PT WAS IN THE HALLWAY FOR OBSERVATION
--- NOTE | 2019-08-11 14:55 | NUR ---
PHYSICAL THERAPY CO-SIGN I approve of the Physical Therapy notes written above. HEATHER ROGER, PT, DPT
--- NOTE | 2019-08-11 15:27 | NUR ---
GROUP A PT ATTENDED GROUP THERAPY BUT BECAME A DISTRACTION BY YELLING OUT AND POUNDING ON HIS TRAY. PT WAS REMOVED BY [facility] AND DID NOT RETURN.
--- NOTE | 2019-08-11 17:48 | NUR ---
COVID SCREENING COLLECTED AND SENT TO LAB.
--- NOTE | 2019-08-11 17:49 | NUR ---
PATIENT STRIKING OUT AT SECOND NURSE DURING COVID 19 SWAB, SECURITY ASSISTANCE. PRN GEODON 10MG IM TO RIGHT DELTOID. ONE ON ONE PROVIDED WITH VERBAL CUEING DURING TESTING. DR. CLARK AWARE.
[2019-08-11 20:00] VITALS: BP 159/76
--- NOTE | 2019-08-11 22:00 | NUR ---
P---CONFUSION, FEAR, INABILITY TO SAFELY AMBULATE ALONE I--CRUSHED MEDICATION AND PROVIDED TO CLIENT. EXTREME SPASTIC MUSCLE MOVEMENTS NOTED. MUST LOOK DIRECTLY AT CLIENT TO GET HIS ATTENTION AND HE FOLLOWED ALL COMMANDS, MOVES SELF UP IN CHAIR, TOOK MEDICATION, STOOD UP AND WAITED TO WALK TO MATTRESS, LAID DOWN AND ALLOWED DEPENDS TO BE CHANGED. UNSURE OF HEARING STATUS R--DIFFICULT TO FOCUS ON TASKS. FOLLOWS COMMANDS WHEN HE UNDERSTANDS THEM. NON VERBAL TONIGHT. UNABLE TO PROVIDE ORIENTATION OTHER THAN WILL LOOK AT YOU WHEN YOU CALL HIS NAME. P--MONITOR FOR CHANGES MOOD/BEHAVIOR AND Q 15 MINUTES AND PRN FOR SAFETY
--- NOTE | 2019-08-12 02:56 | NUR ---
24 HR chart check completed.
--- NOTE | 2019-08-12 06:11 | NUR ---
AWAKENED FOR AM MEDICATION. TAKEN WITH MUCH ENCOURAGEMENT. REFUSED AM BSG. CLIENT DRY AND DOESN'T NEED CHANGED. HE IMMEDIATLEY FELL BACK TO SLEEP. NO SPASMATIC MUSCLE MOVEMENT DURING SLEEP. SLEPT 9 HOURS UNINTERUPTED OTHER THAN TO MOVE HIMSELF AROUND
--- NOTE | 2019-08-12 06:53 | NUR ---
OT NOTE Prior to coming to the floor spoke with nurse Jacki who requested that therapy not come to the floor and treat at this time due to pt finally being asleep and needing to rest. Will check back at a later time/date and continue with POC as able. ARUN Doherty/Lulu
--- NOTE | 2019-08-12 07:00 | NUR ---
PHYSICAL THERAPY Per discussion with Jacki on U this am, patient was just put to bed and therapist was advised to check back later this date. Will continue per POC as able. Jono Tate, NETWORK CONTROL OPERATORS SUPERVISOR
--- NOTE | 2019-08-12 08:30 | NUR ---
Treatment Plan meeting was held this a.m. with KATHARINE Malik, RN, AT, J[employer]UE[employer]S and [employer]. Plan for discharge next week. Pt. will return to [facility].
--- NOTE | 2019-08-12 09:06 | NUR ---
DR RAGLAND ON UNIT TO ASSESS PT, UPDATE PROVIDED.
--- NOTE | 2019-08-12 09:50 | NUR ---
Notified Lynette Flores Clinical Liason from [facility] of Plans to discharge Next week. Clinical Updates faxed to Facility.
--- NOTE | 2019-08-12 11:40 | NUR ---
AM GROUP PT DID NOT ATTEND GROUP THERAPY. PT WAS IN BED RESTING.
--- NOTE | 2019-08-12 14:04 | NUR ---
GROUP A / ABUNDIO PT WAS PRESENT FOR GROUP THERAPY BUT IS UNABLE TO PARTICIPATE DUE COGNITIVE IMPAIRMENT AND EXCESSIVE BODY MOVEMENTS. PT OBSERVED AND EXHIBITED NO ADVERSE BEHAVIORS WHILE IN GROUP.
--- NOTE | 2019-08-12 15:41 | NUR ---
GROUP B PT DID NOT ATTEND AFTERNOON GROUP THERAPY. PT WAS RESTING IN BED.
--- NOTE | 2019-08-12 16:55 | NUR ---
OCCUPATIONAL THERAPY CO-SIGN I approve of the Occupational Therapy notes written above. Kell Lloyd OTR/L
[2019-08-12 20:00] VITALS: BP 140/77
--- NOTE | 2019-08-12 20:41 | NUR ---
EASILY AWAKENED FOR MEDICATION. MEDICATION GIVEN WITH MUCH ENCOURAGEMENT HE THEN ATE 2 CONTAINS OF PUDDING/APPLESAUCE. INCREASE SPASMOTIC MUSCLE MOVEMENTS WHEN SITTING UP. NONE NOTED WHILE LAYING DOWN. REMAINS IN QUIET ROOM ON MATTRESSES FOR SAFETY AND CLOSER MONITOR. CLIENT DOING MUCH BETTER ON MATTRESSES THAN IN CHAIR
--- NOTE | 2019-08-13 05:49 | NUR ---
HAS BEEN SLEEPING WELL SINCE 1900PM. WOKE FOR MEDS. MOVES SELF AROUND MATTRESS.
[2019-08-13 08:00] VITALS: BP 138/78
--- NOTE | 2019-08-13 09:00 | NUR ---
DR RAGLAND ON UNIT TO ASSESS PT.
--- NOTE | 2019-08-13 18:40 | NUR ---
Shift chart check completed.
--- NOTE | 2019-08-13 18:41 | NUR ---
PATIENT IS ALERT TO PERSON WITH CONFUSION, ABLE TO FOLLOW SIMPLE COMMANDS. LONG/SHORT TERM MEMORY DEFICITS. NO VOICED STATEMENTS OF HI/SI OR PAIN. DIFFICULTY WITH VOICING NEEDS, REMAINS MOSTLY MUTE. NO RESPONSE TO INTERNAL STIMULI OBSERVED. NO AGGRESSION OBSERVED. MEDICATION COMPLIANT. Q 15 MINUTE SAFETY CHECKS MAINTAINED. 2 PERSON ASSIST WITH ACTIVITIES OF DAILY LIVING, INCONTINENT OF BOWEL AND BLADDER. SET UP FOR MEALS, ONE ASSIST NEEDED. MEAL INTAKES VARY WITH ENCOURAGEMENT TO DRINK FLUIDS. ATTENDED AFTERNOON GROUP SESSION BUT DID NOT PARTICIPATE. PATIENT UP IN ALLISON CHAIR FOR COMFORT, DYCEM ADDED TO SEAT TO HELP WITH POSITIONING. PATIENT CONTINUES WITH CONSTANT MOTIONS WITH ALL EXTREMITIES. CONTINUE TO MONITOR FOR AGGRESSION/OUTBURST; PROVIDE ONE ON ONE, REDIRECTION, MUSIC THERAPY AND CHANGE OF ENVIRONMENT WITH LOW STIMULUS NEEDED. BETTER DAY NOTED TODAY.
[2019-08-13 20:00] VITALS: BP 140/76
--- NOTE | 2019-08-13 23:58 | NUR ---
P-CONFUSION I-REDIRECTION WITH 1:1 THERAPEUTIC INTERVENTIONS AND COMMUNICATION. PRESENT REALITY. EDUCATE AND ENCOURAGE MEDICATION COMPLIANCE R-MEDICATION COMPLIANT AT HS. PATIENT PROVIDED NOURISHMENT AND FLUIDS AT HS. PATIENT WITH NO HALLUCINATIONS OR DELUSIONS. PATIENT WITH NO HOMICIDAL IDEATIONS AND DENIES SUICIDAL IDEATIONS AT THIS TIME. PATIENT WITH ABNORMAL INVOLUNTARY BODY MOVEMENTS AT TIMES THROUGHOUT SHIFT. PATIENT ASSISTED TO BATHROOM WITH ASSIST X 3. PATIENT RESTLESS AND AGITATED WITH HANDS ON CARE. REDIRECTION PROVIDED WITH EFFECTIVE RESULTS AT THIS TIME. P-CONTINUE TO ENCOURAGE MEDICATION COMPLIANCE, CONTINUE TO PRESENT REALITY, ENCOURAGE GROUP THERAPY WHILE AWAKE
--- NOTE | 2019-08-14 06:55 | NUR ---
PATIENT SLEPT 8 HOURS OF UNINTERRUPTED SLEEP THROUGHOUT SHIFT. Q 15 MINUTE CHECKS MAINTAINED. 24 HR chart check completed.
[2019-08-14 08:00] VITALS: BP 135/77
--- NOTE | 2019-08-14 11:47 | NUR ---
DR. RAGLAND ON UNIT TO ASSESS PATIENT.
--- NOTE | 2019-08-14 16:00 | NUR ---
Shift chart check completed.
[2019-08-14 19:55] VITALS: BP 110/76; BP 144/80
--- NOTE | 2019-08-14 23:43 | NUR ---
P-CONFUSION I-REDIRECTION WITH 1:1 THERAPEUTIC INTERVENTIONS AND COMMUNICATION. PRESENT REALITY. EDUCATE AND ENCOURAGE MEDICATION COMPLIANCE R-MEDICATION COMPLIANT AT HS. PATIENT PROVIDED NOURISHMENT AND FLUIDS AT HS. PATIENT WITH NO HALLUCINATIONS OR DELUSIONS. PATIENT WITH NO HOMICIDAL IDEATIONS AND DENIES SUICIDAL IDEATIONS AT THIS TIME. PATIENT WITH ABNORMAL INVOLUNTARY BODY MOVEMENTS AT TIMES THROUGHOUT SHIFT. PATIENT ASSISTED TO BATHROOM WITH ASSIST X 2. PATIENT LESS RESTLESS AND AGITATED WITH HANDS ON CARE. REDIRECTION PROVIDED WITH EFFECTIVE RESULTS AT THIS TIME. P-CONTINUE TO ENCOURAGE MEDICATION COMPLIANCE, CONTINUE TO PRESENT REALITY, ENCOURAGE GROUP THERAPY WHILE AWAKE
--- NOTE | 2019-08-15 06:51 | NUR ---
PATIENT SLEPT 8 HOURS OF UNINTERRUPTED SLEEP THROUGHOUT SHIFT. Q 15 MINUTE CHECKS MAINTAINED. 24 HR chart check completed.
--- NOTE | 2019-08-15 07:05 | NUR ---
PHYSICAL THERAPY Patient seen this am for therapy visit and was supine on floor mattress in conference room upon therapist arrival. Patient identified by name / and joined by OT oral surgery assistant for observation this session. Patient was alert, responding with only 2-3 word answers while tranfering supine to stand with MIN A x 2. Patient ambulated [employer]IM[employer] EXP[employer] DRIER/CGA x 2, demonstrating bouts of impulsive gait velocity episodes, > 125'x 1, including involuntary B UE movement. Patient returned to Loren chair in activity room with lap tray, body alarm, and remained under [facility] staff Supervision. Will continue per POC as tolerated, total treatment time 16 minutes. Jono Tate, WAITER/WAITRESS ROOM SERVICE
--- NOTE | 2019-08-15 07:17 | NUR ---
OT NOTE Prior to start of session spoke with nurse Lindsay and reported that therapy was coming to the floor to treat this pt. Pt was seen this A.M. 1:1 for 17 minute OT session with TC OPERATOR and nursing staff present for observation only. Upon arrival pt was supine in the quiet room on the [facility] which was located on the floor. Pt transferred supine to stand with Nathalie X 2. Functional mobility was then completed to the kasie chair with Nathalie CARGOMAN X 2. While seated requested for pt to allan his socks, pt required maxA to complete due to being unable to follow commands given. Sit to stand then completed from chair level, challenged pt's dynamic standing tolerance for increased I and enhanced endurance, pt was able to tolerate aprox 3 minutes before sitting due to fatigue. Pt was left sitting semi reclined in the kasie chair in the dining allen with lap tray in place and body alarm activated for safety under [facility] staff supervision. Continue with rec D/C plan to SNF. ARUN Doherty/Lulu
[2019-08-15 07:43] VITALS: BP 121/75
--- NOTE | 2019-08-15 09:00 | NUR ---
Treatment Plan meeting was held this a.m. with Dr. Johnston, KATHARINE Malik, RN, AT, [employer] and Provider Network Analyst. Plan for discharge at the end of the week or early next week. Pt. will return to [facility].
[2019-08-15 10:19] LABS: BASO % 0.3 % (0.0-1.0); EOS # 0.2 10*3/uL (0.0-0.4); EOS % 1.4 % (1.0-4.0); HEMATOCRIT 40.1 % (42.0-52.0); LYMPH # 1.1 10*3/uL (1.3-4.4); LYMPH % 9.3 % (27.0-41.0); MEAN CELL VOLUME 87.7 fl (80.0-94.0); MEAN CORPUSCULAR HGB 28.9 pg (27.0-31.0); MEAN CORPUSCULAR HGB CONC 32.9 g/dl (33.0-37.0); MEAN PLATELET VOLUME 10.6 fl (9.6-12.3); MONO # 0.7 10*3/uL (0.1-1.0); MONO % 5.7 % (3.0-9.0); NEUT # 10.1 10*3/uL (2.3-7.9); NEUT % 82.8 % (47.0-73.0); PLATELET COUNT AUTOMATED 259 10*3/uL (130-400); RED BLOOD COUNT 4.57 10*6/uL (4.50-5.90); RED CELL DISTRI WIDTH 13.4 % (0-14.5); WHITE BLOOD COUNT 12.2 10*3/uL (4.8-10.8)
--- NOTE | 2019-08-15 15:21 | NUR ---
Clinical Updates faxed to [place]. Notified Lynette Flores of plans to discharge at the end of the week or beginning of next.
--- NOTE | 2019-08-15 15:49 | NUR ---
GROUP A PT DID NOT ATTEND GROUP THERAPY. PT WAS IN A QUIET ROOM RESTING.
--- NOTE | 2019-08-15 17:42 | NUR ---
PATIENT IS ALERT TO PERSON WITH CONFUSION, ABLE TO FOLLOW SIMPLE COMMANDS. LONG/SHORT TERM MEMORY DEFICITS. NO VOICED STATEMENTS OF HI/SI OR PAIN. DIFFICULTY WITH VOICING NEEDS, REMAINS MOSTLY MUTE. NO RESPONSE TO INTERNAL STIMULI OBSERVED. NO AGGRESSION OBSERVED. MEDICATION COMPLIANT. Q 15 MINUTE SAFETY CHECKS MAINTAINED. 2 PERSON ASSIST WITH ACTIVITIES OF DAILY LIVING, INCONTINENT OF BOWEL AND BLADDER. SET UP FOR MEALS, ONE ASSIST NEEDED. MEAL INTAKES ARE GOOD, WITH ADEQUATE FLUIDS. PATIENT UP IN ALLISON CHAIR FOR COMFORT. TREMORS HAVE IMPROVED. CONTINUE TO MONITOR FOR AGGRESSION/OUTBURST; PROVIDE ONE ON ONE, REDIRECTION, MUSIC THERAPY AND CHANGE OF ENVIRONMENT WITH LOW STIMULUS NEEDED.
[2019-08-15 20:00] VITALS: BP 133/69
--- NOTE | 2019-08-15 23:56 | NUR ---
P-CONFUSION I-REDIRECTION WITH 1:1 THERAPEUTIC INTERVENTIONS AND COMMUNICATION. PRESENT REALITY. EDUCATE AND ENCOURAGE MEDICATION COMPLIANCE R-MEDICATION NONCOMPLIANT AT HS. PATIENT PROVIDED NOURISHMENT AND FLUIDS AT HS. PATIENT WITH NO HALLUCINATIONS OR DELUSIONS. PATIENT WITH NO HOMICIDAL IDEATIONS AND DENIES SUICIDAL IDEATIONS AT THIS TIME. PATIENT WITH ABNORMAL INVOLUNTARY BODY MOVEMENTS AT TIMES THROUGHOUT SHIFT. PATIENT ASSISTED TO BATHROOM WITH ASSIST X 2. PATIENT LESS RESTLESS AND AGITATED WITH HANDS ON CARE. REDIRECTION PROVIDED WITH EFFECTIVE RESULTS AT THIS TIME. P-CONTINUE TO ENCOURAGE MEDICATION COMPLIANCE, CONTINUE TO PRESENT REALITY, ENCOURAGE GROUP THERAPY WHILE AWAKE
--- NOTE | 2019-08-16 06:47 | NUR ---
PATIENT SLEPT 6-7 HOURS OF UNINTERRUPTED SLEEP THROUGHOUT SHIFT. Q 15 MINUTE CHECKS MAINTAINED. 24 HR chart check completed.
--- NOTE | 2019-08-16 07:10 | NUR ---
PHYSICAL THERAPY Patient seen this am for therapy visit and was resting supine on floor mattress in conference room upon therapist arrival. Patient presented with bouts of involuntary upper / lower extremity movements and identified this morning by name / . Patient transfers supine to stand with MIN A x 2, ambulating 15'x 1 to chair, [facility] and was joined by OT medical office assistant instructor who helped patient get his hospital pants on. Patient ambulated additional 150'x 1, ad bethany in hallway, [facility], demonstrating bouts of unsteady gait pattern and required several v/c's to focus on task in completing safe gait ex. Patient returned to actvity room Loren chair and remained with lap tray , body alarm under U staff Supervision. Will continue per POC as tolerated, total treatment time 17 minutes. Jono Tate, POWER BARKER OPERATOR
--- NOTE | 2019-08-16 07:28 | NUR ---
OT NOTE Pt seen this date 1:1 for 15 min therapy session. Spoke w Meka prior to visit to inform them therapy was coming to treat pt. RAIL GRINDER present for observation only. Pt identified by name and . Upon arrival pt was sleeping sidelaying on mattress which was located on the floor in the quiet room. Pt was difficult to arouse this date and required continuous verbal/tactile cues to awake. Pt was assisted from seated on mattress to standing w Min A x2. Pt required handheld A x2 to walk to chair in quiet room. Pt sat in chair w Min A for safety. While seated pt required Max A to allan socks and pants w verbal/tactile cues to raise BLE w fair success. Pt stood from chair w Min A due to being unsteady from involuntary movements. Pt was able to pull waistband over hips w Min A for balance and verbal cues to initiate task w good success. Pt then completed functional mobility w handheld assist x2 d/t poor balance and involuntary movements. [facility] and one verbal cue to scoot back into chair w good followthrough. At end of session pt returned to dining allen reclined in kasie chair w body alarm activated, lap tray in place, and [facility] staff present. Continue w current D/C plan to SNF. Crow Mayer/ARUN Garcia/Lulu
[2019-08-16 07:40] VITALS: BP 122/78
--- NOTE | 2019-08-16 08:30 | NUR ---
Treatment Plan meeting was held this a.m. with KATHARINE Malik, RN, AT, [employer] and Building Serviceman. Plan for discharge today with return to [place].
--- NOTE | 2019-08-16 10:50 | NUR ---
DR WANG ON UNIT TO ASSESS PT, UPDATE PROVIDED.
[2019-08-16] MEDS ORDERED: CLOZAPINE100 MG PO (11:32)
[2019-08-16] MEDS ORDERED: CLOZAPINE25 MG PO ×2 (11:32)
[2019-08-16] MEDS ORDERED: MIRTAZAPINE15 M2 PO (11:43)
--- NOTE | 2019-08-16 11:44 | NUR ---
AM GROUP/ EXERCISE AND PICTIONARY PT ATTENDED MORNING GROUP THERAPY AND PARTICIPATED TO THE BEST OF HIS ABILITY. ALTHOUGH UNABLE TO DO THE EXERCISES, PT OBSERVED AND DURING PICTIONARY, WAS YELLING OUT ANSWERS. PT EXHIBITED NO ADVERSE BEHAVIORS WHILE IN GROUP.
--- NOTE | 2019-08-16 12:09 | NUR ---
NURSE TO NURSE REPORT GIVEN TO VENKAT AT [facility]. PT ALERT TO PERSON ONLY, CONFUSION AND SHORT TERM MEMORY DEFICITS NOTED PER PT BASELINE. PT CALM, RESTLESS AT TIMES. NO HALLUCINATIONS OR DELUSIONS NOTED. NO SUICIDAL THOUGHTS OR BEHAVIORS NOTED. PT UP TO A GERICHAIR, REQUIRES 1-2 STAFF ASSIST FOR TRANSFERS AND CARE. PT INCONTINENT OF BOWEL AND BLADDER, CARE PROVIDED NEEDED. PLAN IS TO MONITOR PT BEHAVIORS ON Q15 MIN SAFETY CHECKS, AND PREPARE FOR DC.
--- NOTE | 2019-08-16 12:23 | NUR ---
Discharge Paperwork faxed to [place].
--- NOTE | 2019-08-16 13:33 | NUR ---
Patient discharging today returning to [place]. Follow-up will be with Dr Johnston, visiting psychiatrist. Pt's behaviors have improved while at [facility]. Pt attended groups but did not actively participate.
--- NOTE | 2019-08-17 07:42 | NUR ---
PHYSICAL THERAPY CO-SIGN I approve of the Physical Therapy notes written above. Adry Valenzuela PT
--- NOTE | 2019-08-17 08:04 | NUR ---
OCCUPATIONAL THERAPY CO-SIGN I approve of the Occupational Therapy notes written above. Joann Roberts, OTR/L
== END 2019-08-16 14:00 | disposition other institution (70) | DRG 883 ==
LOC: 3N
PROVIDERS: Counselor Professional; Registered Nurse; ADMIT Psychiatry & Neurology Psychiatry
DX: F63.81 Intermittent explosive disorder (principal); N17.0 Acute kidney failure with tubular necrosis; F02.81 Dementia in other diseases classified elsewhere, unspecified severity, with behavioral disturbance; F25.9 Schizoaffective disorder, unspecified; G20 Parkinson's disease; G24.01 Drug induced subacute dyskinesia; F41.9 Anxiety disorder, unspecified; I10 Essential (primary) hypertension; E03.9 Hypothyroidism, unspecified; M1A.9XX0 Chronic gout, unspecified, without tophus (tophi); D72.825 Bandemia; E11.65 Type 2 diabetes mellitus with hyperglycemia; E83.41 Hypermagnesemia; R13.10 Dysphagia, unspecified; E78.5 Hyperlipidemia, unspecified; G47.00 Insomnia, unspecified; F32.9 Major depressive disorder, single episode, unspecified; F29 Unspecified psychosis not due to a substance or known physiological condition; T50.995A Adverse effect of other drugs, medicaments and biological substances, initial encounter; Z79.4 Long term (current) use of insulin; Y92.89 Other specified places as the place of occurrence of the external cause; Z82.49 Family history of ischemic heart disease and other diseases of the circulatory system; Z83.3 Family history of diabetes mellitus; Z84.1 Family history of disorders of kidney and ureter; Z79.899 Other long term (current) drug therapy; Z79.82 Long term (current) use of aspirin; Z03.818 Encounter for observation for suspected exposure to other biological agents ruled out; Z87.440 Personal history of urinary (tract) infections; Z87.891 Personal history of nicotine dependence

== ENCOUNTER 2019-08-06 15:14 | Emergency (ER) | payer MEDICARE, MEDICAID ==
[~2019-08-06 15:14] MED LIST changes: +CELEXA20 MG PO; +CLOZAPINE200 MG PO; +CLOZAPINE50 MG PO; +GENTACIDIN5 ML OU; +MELATONIN3 MG PO; +METFORMIN HYDR500 MG PO; +MIRTAZAPINE15 M2 PO; +NUPLAZID34 MG PO; +PHARMASSURE FO0.4 MG PO; +TETRABENAZINE12.5 MG PO; +TRAZODONE50 MG PO
[2019-08-06 15:48] LABS: BASO # 0.1 10*3/uL (0.0-0.1); BASO % 0.4 % (0.0-1.0); EOS # 0.2 10*3/uL (0.0-0.4); EOS % 1.2 % (1.0-4.0); LYMPH # 2.3 10*3/uL (1.3-4.4); MEAN CORPUSCULAR HGB 29.2 pg (27.0-31.0); MEAN CORPUSCULAR HGB CONC 32.8 g/dl (33.0-37.0); MEAN PLATELET VOLUME 10.1 fl (9.6-12.3); MONO # 1.1 10*3/uL (0.1-1.0); MONO % 6.9 % (3.0-9.0); NEUT # 11.7 10*3/uL (2.3-7.9); NEUT % 76.2 % (47.0-73.0); PLATELET COUNT AUTOMATED 338 10*3/uL (130-400); RED BLOOD COUNT 4.83 10*6/uL (4.50-5.90); RED CELL DISTRI WIDTH 13.2 % (0-14.5); WHITE BLOOD COUNT 15.3 10*3/uL (4.8-10.8)
[2019-08-06 16:07] LABS: ALBUMIN 4.5 gm/dl (3.1-4.5); ALKALINE PHOSPHATASE 166 U/L (45-117); BUN 46 mg/dl (7-24); CHLORIDE 105 mmol/L (98-107); CREATININE 1.47 mg/dL (0.70-1.30); POTASSIUM 4.4 mmol/L (3.5-5.1); SGOT/AST 28 IU/L (3-35); SGPT/ALT 37 U/L (12-78); SODIUM 138 mmol/L (136-145)
[2019-08-06 16:13] LABS: ETHYL ALCOHOL < 3.0 mg/dl (<3); TROPONIN I < 0.015 ng/ml (<0.045)
== END 2019-08-06 17:30 | disposition admitted as inpatient to this hospital (09) ==
LOC: ED 15:14
PROVIDERS: Emergency Medicine
DX: F29 Unspecified psychosis not due to a substance or known physiological condition (principal); F41.9 Anxiety disorder, unspecified; E11.9 Type 2 diabetes mellitus without complications; M10.9 Gout, unspecified; I10 Essential (primary) hypertension; E78.5 Hyperlipidemia, unspecified; E03.9 Hypothyroidism, unspecified; F32.9 Major depressive disorder, single episode, unspecified; Z79.899 Other long term (current) drug therapy; Z79.82 Long term (current) use of aspirin; Z79.4 Long term (current) use of insulin; Z79.84 Long term (current) use of oral hypoglycemic drugs